=== PATIENT | male | born 1955 | race Hispanic/Latino ===

== ENCOUNTER 2020-04-12 07:56 | Day surgery (SDC) | payer OTHER ==
[2020-04-05 11:55] LABS: BASOPHILS % (AUTO) 1.2 % (0.0-5.0); EOSINOPHILS % (AUTO) 1.6 % (0.0-8.0); HEMATOCRIT 43.8 % (42-54); LYMPHOCYTES % (AUTO) 26.1 % (21.0-51.0); MEAN CORPUSCULAR HEMOGLOBIN 29.6 pg (27.0-33.0); MEAN CORPUSCULAR HGB CONC 33.3 g/dL (32.0-36.0); MEAN CORPUSCULAR VOLUME 88.8 fL (79-99); MONOCYTES % (AUTO) 9.6 % (3.0-13.0); NEUTROPHILS % (AUTO) 61.1 % (40.0-77.0); PLATELET COUNT (AUTO) 227 K/uL (130-400); RED BLOOD CELL COUNT(AUTO) 4.93 MIL/uL (4.50-6.20); RED CELL DISTRIBUTION WIDTH 13.1 % (11.0-15.5)
[2020-04-05 12:02] LABS: CREATININE 1.1 mg/dL (0.5-1.5); POTASSIUM 3.8 mmol/L (3.5-5.1)
[2020-04-05 12:47] LABS: APPEARANCE,URINE Clear (CLEAR); BILIRUBIN,URINE Negative (NEGATIVE); COLOR,URINE Yellow (YELLOW); GLUCOSE, URINE (UA) Negative (NEGATIVE); KETONES,URINE Negative (NEGATIVE); LEUKOCYTE ESTERASE ,URINE Negative (NEGATIVE); NITRATE,URINE Negative (NEGATIVE); OCCULT BLOOD,URINE Negative (NEGATIVE); PH,URINE 5.5 (5.0-8.0); PROTEIN,URINE Negative (NEGATIVE); UROBILINOGEN,URINE 0.2 mg/dL (0.2-1.0)
[2020-04-11 13:52] VITALS: BP 119/73
[~2020-04-12] VITALS: Ht 180.3 cm; Wt 83.2 kg
[2020-04-12] VITALS (17 sets, daily range): BP systolic 95–137; BP diastolic 47–80
[~2020-04-12 07:56] MED LIST: CEFTRIAXONE SODIUM 1 GM IVP SCH; GENTAMICIN 80 MG/NS 100 ML PB 100 ML IV SCH
[2020-04-12] MEDS ORDERED: LACTATED RINGERS 1000ML 1,000 ML IV ONE (08:11)
[2020-04-12] MEDS ORDERED: LIDOCAINE PF 2% 5ML ABBOJECT ONE (09:28)
[2020-04-12] MEDS ORDERED: PROPOFOL 10 MG/ML 20ML VIAL IV ONE ×3 (09:28→09:58)
[2020-04-12] MEDS ORDERED: MIDAZOLAM HCL 1 MG/ML 2ML VIAL ONE (09:29)
[2020-04-12] MEDS ORDERED: ROCURONIUM 10MG/1ML SYR 10 MG/ML ML ONE (09:30)
[2020-04-12] MEDS ORDERED: SUCCINYLCHOLINE CHLORIDE 20 MG/ML 10 ML VIAL ONE (09:30)
[2020-04-12] MEDS ORDERED: TAMS-1 PO (09:35)
[2020-04-12] MEDS ORDERED: ATOR10TA69 PO (09:35)
[2020-04-12] MEDS ORDERED: CETI10TA57 PO (09:35)
[2020-04-12] MEDS ORDERED: levaquin PO (09:35)
--- NOTE | 2020-04-12 09:38 | NUR ---
no order to not give gentamycin 80mg iv due to patient already taking abt
[2020-04-12] MEDS ORDERED: GLYCOPYRROLATE 1 MG/5 ML SYRINGE ONE (09:52)
--- NOTE | 2020-04-12 11:15 | NUR ---
POST OP RECEIVED PT AND REPORT FROM KRISTEN SHAH FROM PACU. PT IN NO DISTRESS JUST WITH URGE TO VOID. PT ORIENTED TO ROOM AND CALL LIGHT. WILL CONTINUE TO MONITOR PT. NO ACTIVE BLEEDING NOTED TO RECTAL AREA AT THIS TIME.
[2020-04-12] MEDS ORDERED: HYDROCODONE/ACETAMINOPHEN 7.5/325 MG TAB ONE (11:49)
[2020-04-12] MEDS ORDERED: HYDROCODONE/ACETAMINOPHEN 5/325 MG TAB ONE (11:56)
[2020-04-12] MEDS ORDERED: HYDROCODONE/ACETAMINOPHEN 5/325 MG TAB PO PRN (12:00)
--- NOTE | 2020-04-12 12:00 | NUR ---
DISCHARGE PT AND FRIEND GIVEN DISCHARGE INSTRUCTIONS BY ISA ALCALA RN. BOTH VOICED UNDERSTANDING. PT TAKEN OUT VIA W/C IN NO DISTRESS.
== END 2020-04-12 12:00 | disposition home or self-care (01) ==
LOC: DAH 07:56
PROVIDERS: ATTEND Urology
DX: R97.20 Elevated prostate specific antigen [PSA] (principal); Z20.828 Contact with and (suspected) exposure to other viral communicable diseases; N40.1 Benign prostatic hyperplasia with lower urinary tract symptoms; R33.8 Other retention of urine; N41.1 Chronic prostatitis; E78.5 Hyperlipidemia, unspecified; Z79.899 Other long term (current) drug therapy; Z80.0 Family history of malignant neoplasm of digestive organs; Z86.19 Personal history of other infectious and parasitic diseases
CPT/HCPCS: 36415; 55700; 76942; 80048; 81003; 85025; 87088; 93005; A4215 ×2; A4221; A4222; A4223; A4663; C9803; J0696; J1580; J2250; J2704 ×3; J3490; J7120 ×2; U0003; J0330; J2001

== ENCOUNTER 2020-05-24 07:23 | Day surgery (SDC) | payer OTHER ==
[2020-05-18 13:40] LABS: EOSINOPHILS % (AUTO) 1.5 % (0.0-8.0); HEMATOCRIT 43.2 % (42-54); LYMPHOCYTES % (AUTO) 27.9 % (21.0-51.0); MEAN CORPUSCULAR HEMOGLOBIN 29.5 pg (27.0-33.0); MEAN CORPUSCULAR HGB CONC 32.9 g/dL (32.0-36.0); MEAN CORPUSCULAR VOLUME 89.6 fL (79-99); MONOCYTES % (AUTO) 10.9 % (3.0-13.0); NEUTROPHILS % (AUTO) 58.4 % (40.0-77.0); PLATELET COUNT (AUTO) 222 K/uL (130-400); RED BLOOD CELL COUNT(AUTO) 4.82 MIL/uL (4.50-6.20); RED CELL DISTRIBUTION WIDTH 13.1 % (11.0-15.5); WHITE BLOOD COUNT (AUTO) 5.9 K/uL (4.8-10.8)
[2020-05-18 13:49] LABS: BILIRUBIN,URINE Negative (NEGATIVE); COLOR,URINE Yellow (YELLOW); GLUCOSE, URINE (UA) Negative (NEGATIVE); KETONES,URINE Negative (NEGATIVE); LEUKOCYTE ESTERASE ,URINE Negative (NEGATIVE); NITRATE,URINE Negative (NEGATIVE); OCCULT BLOOD,URINE Negative (NEGATIVE); PROTEIN,URINE Negative (NEGATIVE); UROBILINOGEN,URINE 0.2 mg/dL (0.2-1.0)
[2020-05-18 13:54] LABS: APPEARANCE,URINE CLEAR (CLEAR)
[2020-05-18 13:58] LABS: CREATININE 1.1 mg/dL (0.5-1.5); POTASSIUM 4.3 mmol/L (3.5-5.1)
[2020-05-23 09:45] VITALS: BP 149/85
[~2020-05-24] VITALS: Ht 180.3 cm; Wt 83.0 kg
[2020-05-24] VITALS (20 sets, daily range): BP systolic 102–145; BP diastolic 56–82
[~2020-05-24 07:23] MED LIST changes: +ATOR10TA69 PO; +CETI10TA57 PO; -GENTAMICIN 80 MG/NS 100 ML PB 100 ML IV SCH; +GENTAMICIN SULFATE 240 MG in SODIUM CHLORIDE 0.9% 100 ML IV SCH; +LEVO500T89 PO; +TAMS-1 PO
[2020-05-24] MEDS ORDERED: LACTATED RINGERS 1000ML 1,000 ML IV ONE (07:33)
[2020-05-24] MEDS ORDERED: MIDAZOLAM HCL 1 MG/ML 2ML VIAL ONE (10:06)
[2020-05-24] MEDS ORDERED: ONDANSETRON HCL 4 MG/2 ML VIAL ONE (10:06)
[2020-05-24] MEDS ORDERED: DEXAMETHASONE SOD PHOSPHATE 10MG/ML 1ML VIAL ONE (10:06)
[2020-05-24] MEDS ORDERED: SUCCINYLCHOLINE 200MG/10ML SYR ONE (10:06)
[2020-05-24] MEDS ORDERED: LIDOCAINE PF 2% 5ML ABBOJECT ONE (10:06)
[2020-05-24] MEDS ORDERED: NEOSTIGMINE 5MG/5ML SYR IV ONE (10:07)
[2020-05-24] MEDS ORDERED: GLYCOPYRROLATE 1 MG/5 ML SYRINGE ONE (10:07)
[2020-05-24] MEDS ORDERED: FENTANYL CITRATE PF 50 MCG/1 ML 2ML VIAL ONE ×2 (10:07→11:49)
[2020-05-24] MEDS ORDERED: PROPOFOL 10 MG/ML 20ML VIAL IV ONE (10:07)
[2020-05-24] MEDS ORDERED: ROCURONIUM 10MG/1ML SYR 10 MG/ML ML ONE (10:07)
[2020-05-24] MEDS ORDERED: GENTAMICIN 80 MG/NS 100 ML PB 100 ML IV ONE (10:21)
[2020-05-24] MEDS ORDERED: EPHEDRINE SULFATE 50 MG/ML AMPULE ONE (10:59)
[2020-05-24] MEDS ORDERED: OPIUM/BELLADONNA ALKALOIDS 1 EACH SUPP.RECT RC ONE (13:19)
[2020-05-24] MEDS ORDERED: MEPERIDINE-PF 25 MG/ML SYG IVP SCH (13:45)
== END 2020-05-24 14:30 | disposition home or self-care (01) ==
LOC: DAH 07:23
PROVIDERS: ATTEND Urology
DX: N40.1 Benign prostatic hyperplasia with lower urinary tract symptoms (principal); R33.8 Other retention of urine; Z20.828 Contact with and (suspected) exposure to other viral communicable diseases; N32.89 Other specified disorders of bladder
CPT/HCPCS: 36415; 52648; 80048; 81003; 85025; 87088; A4215; A4221; A4223; A4354; A4358; A4600; A4663; A6260; C1758; C9803; J0330; J0696; J1100; J1580; J2001; J2175; J2250; J2405; J2704; J2710; J3010 ×2; J3490 ×2; J7030; J7120; U0003

== ENCOUNTER → 2020-09-12 | Outpatient (CLI) | payer OTHER ==
[~2020-09-12] MED LIST changes: -CEFTRIAXONE SODIUM 1 GM IVP SCH; -GENTAMICIN SULFATE 240 MG in SODIUM CHLORIDE 0.9% 100 ML IV SCH
== END | disposition home or self-care (01) ==
LOC: RAH 09:18
PROVIDERS: ATTEND Internal Medicine
DX: K80.20 Calculus of gallbladder without cholecystitis without obstruction (principal)
CPT/HCPCS: 76700

== ENCOUNTER 2021-01-27 09:39 | Inpatient (IN) | payer OTHER ==
[~2021-01-27] VITALS: Ht 180.3 cm; Wt 82.7 kg
[2021-01-27] VITALS (13 sets, daily range): BP systolic 91–136; BP diastolic 47–71
[2021-01-27 10:44] LABS: BILIRUBIN,URINE NEGATIVE (NEGATIVE); COLOR,URINE YELLOW (YELLOW); GLUCOSE, URINE (UA) NEGATIVE (NEGATIVE); KETONES,URINE NEGATIVE (NEGATIVE); LEUKOCYTE ESTERASE ,URINE LARGE (NEGATIVE); NITRATE,URINE NEGATIVE (NEGATIVE); OCCULT BLOOD,URINE LARGE (NEGATIVE); PH,URINE 6.5 (5.0-8.0); PROTEIN,URINE 30 mg/dL (NEGATIVE); UROBILINOGEN,URINE 0.2 mg/dL (0.2-1.0)
[2021-01-27] MEDS ORDERED: CEFTRIAXONE 1G VIAL IVP SCH (11:00)
[2021-01-27] MEDS ORDERED: 0.9%NACL 1000ML 1,000 ML IV ONE ×2 (11:00→13:11)
[2021-01-27] MEDS ORDERED: KETOROLAC 30MG VIAL (30MG/ML) IVP SCH (11:00)
[2021-01-27 11:02] LABS: APPEARANCE,URINE CLOUDY (CLEAR)
[2021-01-27 11:09] LABS: BASOPHILS % (AUTO) 0.3 % (0.0-5.0); EOSINOPHILS % (AUTO) 0.2 % (0.0-8.0); HEMATOCRIT 40.7 % (42-54); LYMPHOCYTES % (AUTO) 2.7 % (21.0-51.0); MEAN CORPUSCULAR HEMOGLOBIN 30.5 pg (27.0-33.0); MEAN CORPUSCULAR HGB CONC 34.2 g/dL (32.0-36.0); MEAN CORPUSCULAR VOLUME 89.3 fL (79-99); MONOCYTES % (AUTO) 7.7 % (3.0-13.0); NEUTROPHILS % (AUTO) 88.5 % (40.0-77.0); PLATELET COUNT (AUTO) 233 K/uL (130-400); RED BLOOD CELL COUNT(AUTO) 4.56 MIL/uL (4.50-6.20); RED CELL DISTRIBUTION WIDTH 12.7 % (11.0-15.5); WHITE BLOOD COUNT (AUTO) 20.9 K/uL (4.8-10.8)
[2021-01-27 11:19] LABS: BACTERIA,URINE Few /HPF (None Seen)
[2021-01-27 11:20] LABS: CREATININE 1.2 mg/dL (0.5-1.5)
[2021-01-27 11:25] LABS: ALBUMIN 3.4 g/dL (3.5-5.0); BILIRUBIN,TOTAL 1.2 mg/dL (0.2-1.0); TOTAL PROTEIN, SERUM 7.2 g/dL (6.0-8.3)
[2021-01-27] MEDS ORDERED: ACETAMINOPHEN 500 MG TABLET ONE (12:18)
[2021-01-27] MEDS ORDERED: ACETAMINOPHEN 500 MG TABLET PO SCH (12:30)
[2021-01-27] MEDS ORDERED: MORPHINE 2 MG SYG IVP PRN (14:00)
[2021-01-27] MEDS: LACTATED RINGERS 1000ML 1,000 ML IV SCH ×2 (14:00→20:01)
[2021-01-27] MEDS ORDERED: CLONIDINE HCL 0.1 MG TABLET PO PRN (14:00)
[2021-01-27] MEDS ORDERED: ONDANSETRON 4MG INJ IVP PRN (14:00)
[2021-01-27] MEDS ORDERED: LACTATED RINGERS 1000ML 1,000 ML IV ONE (14:00)
[2021-01-27] MEDS ORDERED: ACETAMINOPHEN 650 MG SUPPOSITORY RC PRN (14:00)
[2021-01-27] MEDS ORDERED: NOREPINEPHRINE 4MG/NS 250ML 250 ML IV PRN (14:00)
[2021-01-27] MEDS ORDERED: ACETAMINOPHEN 325 MG TAB PO PRN (14:00)
[2021-01-27] MEDS ORDERED: LACTULOSE 20 GM/30 ML UDCUP PO PRN (14:00)
[2021-01-27] MEDS: MEROPENEM 1 GM VIAL IVP SCH (16:54)
[2021-01-28] VITALS (8 sets, daily range): BP systolic 94–128; BP diastolic 49–78
[2021-01-28] MEDS: MEROPENEM 1 GM VIAL IVP SCH ×3 (00:57→16:05)
[2021-01-28] MEDS: LACTATED RINGERS 1000ML 1,000 ML IV SCH ×2 (02:12→10:59)
[2021-01-28 05:31] LABS: BASOPHILS % (AUTO) 0.3 % (0.0-5.0); EOSINOPHILS % (AUTO) 0.5 % (0.0-8.0); HEMATOCRIT 36.1 % (42-54); LYMPHOCYTES % (AUTO) 3.8 % (21.0-51.0); MEAN CORPUSCULAR HEMOGLOBIN 30.2 pg (27.0-33.0); MEAN CORPUSCULAR VOLUME 91.6 fL (79-99); MONOCYTES % (AUTO) 7.1 % (3.0-13.0); NEUTROPHILS % (AUTO) 87.4 % (40.0-77.0); PLATELET COUNT (AUTO) 211 K/uL (130-400); RED BLOOD CELL COUNT(AUTO) 3.94 MIL/uL (4.50-6.20); RED CELL DISTRIBUTION WIDTH 12.9 % (11.0-15.5); WHITE BLOOD COUNT (AUTO) 27.5 K/uL (4.8-10.8)
[2021-01-28 05:34] LABS: HEMOGLOBIN A1C 5.8 % (4.0-6.0)
[2021-01-28 05:39] LABS: CREATININE 1.1 mg/dL (0.5-1.5); MAGNESIUM 1.7 mg/dL (1.80-2.40); PHOSPHORUS 3.1 mg/dL (2.5-4.9); POTASSIUM 3.7 mmol/L (3.5-5.1)
[2021-01-28] MEDS: POLYETHYLENE GLYCOL 3350 17 GM POWD.PACK PO SCH (09:35)
[2021-01-28] MEDS: ENOXAPARIN SODIUM 40 MG/0.4 ML SYRINGE SQ SCH (09:36)
[2021-01-29] MEDS: MEROPENEM 1 GM VIAL IVP SCH ×3 (00:31→17:38)
[2021-01-29] MEDS: LACTATED RINGERS 1000ML 1,000 ML IV SCH ×3 (00:32→15:16)
[2021-01-29 03:34] VITALS: BP 101/51
[2021-01-29 05:50] LABS: HEMATOCRIT 36.2 % (42-54); MEAN CORPUSCULAR HEMOGLOBIN 29.9 pg (27.0-33.0); MEAN CORPUSCULAR HGB CONC 33.1 g/dL (32.0-36.0); MEAN CORPUSCULAR VOLUME 90.3 fL (79-99); RED BLOOD CELL COUNT(AUTO) 4.01 MIL/uL (4.50-6.20); RED CELL DISTRIBUTION WIDTH 12.6 % (11.0-15.5); WHITE BLOOD COUNT (AUTO) 19.3 K/uL (4.8-10.8)
[2021-01-29 06:00] LABS: CREATININE 1.1 mg/dL (0.5-1.5); POTASSIUM 3.7 mmol/L (3.5-5.1)
[2021-01-29] MEDS ORDERED: MONT10TA32 PO (07:14)
[2021-01-29 07:30] VITALS: BP 113/63
[2021-01-29] MEDS: TAMSULOSIN HCL 0.4 MG CAP.ER.24H PO SCH (09:29)
[2021-01-29] MEDS: POLYETHYLENE GLYCOL 3350 17 GM POWD.PACK PO SCH (09:29)
[2021-01-29] MEDS: FAMOTIDINE 20MG TAB PO SCH ×2 (09:30→19:52)
[2021-01-29] MEDS: ENOXAPARIN SODIUM 40 MG/0.4 ML SYRINGE SQ SCH (09:31)
[2021-01-29 11:00] VITALS: BP 106/54
[2021-01-29] MEDS: CETIRIZINE HCL 5 MG TABLET PO SCH (15:18)
[2021-01-29 16:00] VITALS: BP 117/62
[2021-01-29 20:04] VITALS: BP 107/54
[2021-01-29] MEDS ORDERED: ATORVASTATIN 10 MG TABLET PO SCH (21:00)
[2021-01-29] MEDS ORDERED: MONTELUKAST SODIUM 10 MG TAB PO SCH (21:00)
[2021-01-30] MEDS: MEROPENEM 1 GM VIAL IVP SCH ×2 (00:42→09:59)
[2021-01-30 00:48] VITALS: BP 124/66
[2021-01-30] MEDS: LACTATED RINGERS 1000ML 1,000 ML IV SCH (03:33)
[2021-01-30 03:42] VITALS: BP 112/65
[2021-01-30 05:19] LABS: HEMATOCRIT 35.9 % (42-54); MEAN CORPUSCULAR HGB CONC 33.4 g/dL (32.0-36.0); MEAN CORPUSCULAR VOLUME 89.8 fL (79-99); RED CELL DISTRIBUTION WIDTH 12.5 % (11.0-15.5); WHITE BLOOD COUNT (AUTO) 10.7 K/uL (4.8-10.8)
[2021-01-30 05:28] LABS: POTASSIUM 3.8 mmol/L (3.5-5.1)
[2021-01-30 07:44] VITALS: BP 108/62
[2021-01-30] MEDS: POLYETHYLENE GLYCOL 3350 17 GM POWD.PACK PO SCH (10:00)
[2021-01-30] MEDS: TAMSULOSIN HCL 0.4 MG CAP.ER.24H PO SCH (10:00)
[2021-01-30] MEDS: FAMOTIDINE 20MG TAB PO SCH (10:00)
[2021-01-30] MEDS: CETIRIZINE HCL 5 MG TABLET PO SCH (10:00)
[2021-01-30] MEDS: ENOXAPARIN SODIUM 40 MG/0.4 ML SYRINGE SQ SCH (10:01)
[2021-01-30 11:00] VITALS: BP 130/68
[2021-01-30] MEDS ORDERED: TAMS-1 PO (13:45)
[2021-01-30] MEDS ORDERED: AMOX-429 PO (13:45)
[2021-01-30 16:00] VITALS: BP 136/68
== END 2021-01-30 18:55 | disposition home or self-care (01) | DRG 871 ==
LOC: EDH 09:39 → OBSVTOIN 13:45 → INTOOBSV 13:45 → EDHIP 13:45 → 4DH 22:42 → EDHIP 22:59 → 3CH 01-28 02:07
PROVIDERS: ADMIT Internal Medicine Critical Care Medicine; ATTEND Internal Medicine Critical Care Medicine
DX: A41.9 Sepsis, unspecified organism (principal); R65.21 Severe sepsis with septic shock; N39.0 Urinary tract infection, site not specified; E78.5 Hyperlipidemia, unspecified; N40.1 Benign prostatic hyperplasia with lower urinary tract symptoms; B96.1 Klebsiella pneumoniae [K. pneumoniae] as the cause of diseases classified elsewhere; R33.8 Other retention of urine; Z79.899 Other long term (current) drug therapy; Z90.49 Acquired absence of other specified parts of digestive tract; Z90.79 Acquired absence of other genital organ(s); Z20.822 Contact with and (suspected) exposure to COVID-19
CPT/HCPCS: 36415; 71045; 74176; 80048; 80053; 81001; 83036; 83605; 83735; 84100; 84145; 85025; 85027; 87040; 87077; 87088; 87186; 87635; A4344; G0378; J0696; J1650; J1885; J2185; J2405; J3490; J7030; J7120

== ENCOUNTER → 2024-11-08 | Outpatient (CLI) | payer OTHER ==
[~2024-11-08] MED LIST changes: +AMOX-429 PO; -LEVO500T89 PO; +MONT-39 PO; -TAMS-1 PO; +TAMS-55 PO
--- NOTE | 2024-11-09 06:47 | HMCIMG ---
EXAMINATION: DUPLEX ULTRASOUND EXAMINATION OF THE BILATERAL CAROTID AND VERTEBRAL ARTERIES. CLINICAL HISTORY: Dizziness or giddiness. COMPARISON: None provided. TECHNIQUE: Real-time ultrasound scan of the bilateral carotid and vertebral arteries, 2-D grayscale, with color Doppler flow and spectral waveform analysis. FINDINGS: Color and spectral Doppler interrogation of the carotid vessels on the right demonstrate peak systolic velocities as follows: CCA (Proximal and distal): 97 and 100 cm/s respectively. ECA: 65 cm/s. ICA (Proximal, mid, and distal): 68, 72, and 98 cm/s respectively. Vertebral artery demonstrates antegrade flow: 34 cm/s. Right ICA/CCA ratio: 1.0 Peak systolic velocities on the left are as follows: CCA (Proximal and distal): 129 and 112 cm/s respectively. ECA: 70 cm/s. ICA (Proximal, mid, and distal): 61, 72, and 78 cm/s respectively. Vertebral artery demonstrates antegrade flow: 43 cm/s. Left ICA/CCA ratio: 0.7 Both the common carotid arteries and their branches reveal mild intimal thickening. IMPRESSION: Mild intimal thickening in the bilateral carotid arteries and their branches. There is no significant stenosis or flow limiting lesions. /[place]
== END | disposition home or self-care (01) ==
LOC: RAH 12:57
PROVIDERS: ATTEND Nurse Practitioner Family
DX: I77.89 Other specified disorders of arteries and arterioles (principal); R42 Dizziness and giddiness
CPT/HCPCS: 93880